=== PATIENT | female | born 1970 ===

== ENCOUNTER 2024-07-19 11:18 | Inpatient (IN) | payer MEDICAID ==
[2024-07-19] MEDS ORDERED: Polyethylene Glycol 3350 Powder 17 GM Packet PO PRN (15:55)
[2024-07-19] MEDS ORDERED: Glucagon,Human Recombinant 1 MG Vial IM PRN (16:11)
[2024-07-19] MEDS ORDERED: 50% Dextrose in Water 50 ML Syringe IVPUSH PRN (16:11)
[2024-07-19] MEDS: Piperacillin/Tazobactam 4.5 GM in Sodium Chloride 0.9% 100 ML IV ONE (16:33)
[2024-07-19 16:55] LABS: HEMATOCRIT 32.2 % (37.0-47.0); HEMOGLOBIN 10.2 g/dL (12.0-16.0); MEAN CORPUSCULAR HEMOGLOBIN 30.2 pg (27.0-34.0); MEAN CORPUSCULAR HGB CONC 31.7 g/dL (33.0-35.0); MEAN CORPUSCULAR VOLUME 95.3 fL (80-100); PLATELET COUNT,PLT 514 10^3/uL (150-450); RED BLOOD CELL COUNT 3.38 10^6/uL (4.2-5.4); WHITE BLOOD CELL COUNT,WBC 9.9 10^3/uL (5.0-10.0)
[2024-07-19] MEDS: Piperacillin/Tazobactam 4.5 GM Vial IV SCH (16:59)
[2024-07-19] MEDS: Insulin Lispro 100 Units/ML 3 ML Vial SUBCUT SCH (16:59)
[2024-07-19 17:02] LABS: BASOPHILS PERCENT AUTO 0.7 % (0.0-1.0); EOSINOPHILS PERCENT AUTO 12.6 % (1.0-3.0); LYMPHOCYTES PERCENT AUTO 15.4 % (20.5-50.1); NEUTROPHILS PERCENT AUTO 64.3 % (42.2-75.2)
[2024-07-19 17:12] LABS: HEMOGLOBIN A1C 6.9 % (<5.7)
[2024-07-19 17:16] LABS: ANION GAP 13.9 mEq/L (7-13); BILIRUBIN TOTAL 0.3 mg/dL (0.2-1.0); BUN/CREATININE RATIO 36.9 (No establ ref range); CALCIUM 9.1 mg/dL (8.5-10.1); CREATININE 1.22 mg/dL (0.55-1.02); EST CRCL DRUG DOSING (CG) 48.77 mL/min; POTASSIUM,K 4.9 mmol/L (3.5-5.1); PROTEIN TOTAL,TP 6.7 g/dL (6.4-8.2)
[2024-07-19 17:19] LABS: EOSINOPHILS PERCENT MAN 11 % (1-3); LYMPHOCYTES PERCENT MAN 10 % (20-50); MONOCYTES PERCENT MAN 10 % (2-8); MYELOCYTE PERCENT MAN 1; PLATELET COUNT ESTIMATE INCREASED; SEG NEUTROPHILS PERCENT MAN 68 % (42-75)
[2024-07-19 17:20] LABS: A/G RATIO 0.43
[2024-07-19 17:21] LABS: INR 0.9 (0.9-1.2); PROTHROMBIN TIME 9.6 SEC (9.0-12.0); PTT,PARTIAL THROMBOPLSTIN TIME 27.2 SEC (22.0-34.0)
[2024-07-19] MEDS: Rosuvastatin 10 MG Tab PO SCH (20:45)
[2024-07-19] MEDS: Insulin Glarg,Human.Rec.Analog 100 Unit/ML 10 ML Vial SUBCUT SCH (20:45)
[2024-07-20] MEDS: Piperacillin/Tazobactam 4.5 GM in Sodium Chloride 0.9% 100 ML IV SCH (00:30)
[2024-07-20] MEDS: Bumetanide 1 MG Tab PO SCH (09:22)
[2024-07-20] MEDS: Aspirin 81 MG Tab.EC PO SCH (09:22)
[2024-07-20] MEDS: Magnesium Oxide 400 MG Tab PO SCH (09:23)
[2024-07-20] MEDS: Multivitamin Tab PO SCH (09:23)
[2024-07-20] MEDS: amLODIPine 5 MG Tab PO SCH (09:26)
[2024-07-20] MEDS: Lisinopril 20 MG Tab PO SCH (09:26)
[2024-07-20] MEDS: Enoxaparin 40 MG/0.4 ML Syringe SUBCUT SCH (09:27)
[2024-07-21] MEDS: Melatonin 3 MG Tab PO PRN (00:29)
[2024-07-21] MEDS: Acetaminophen 325 MG Tab PO PRN (21:38)
[2024-07-22] MEDS ORDERED: Nystatin Topical Powder 60 GM Bottle TOP PRN (09:17)
[2024-07-25 07:30] LABS: BASOPHILS PERCENT AUTO 1.8 % (0.0-1.0); EOSINOPHILS PERCENT AUTO 12.5 % (1.0-3.0); HEMATOCRIT 34.7 % (37.0-47.0); HEMOGLOBIN 11.1 g/dL (12.0-16.0); LYMPHOCYTES PERCENT AUTO 17.8 % (20.5-50.1); MEAN CORPUSCULAR HEMOGLOBIN 30.3 pg (27.0-34.0); MEAN CORPUSCULAR VOLUME 94.8 fL (80-100); MONOCYTES PERCENT AUTO 8.4 % (2-8); NEUTROPHILS PERCENT AUTO 59.5 % (42.2-75.2); PLATELET COUNT,PLT 506 10^3/uL (150-450); RED BLOOD CELL COUNT 3.66 10^6/uL (4.2-5.4)
[2024-07-25 07:49] LABS: ALANINE AMINOTRANSFERASE,ALT 43 U/L (14-59); ALBUMIN 2.4 g/dL (3.4-5.0); ALKALINE PHOSPHATASE 198 U/L (46-116); ASPARTATE AMNIOTRANSFERASE,AST 38 U/L (15-37); BILIRUBIN TOTAL 0.3 mg/dL (0.2-1.0); BLOOD UREA NITROGEN,BUN 73 mg/dL (7-18); BUN/CREATININE RATIO 44.8 (No establ ref range); CARBON DIOXIDE,CO2 28 mmol/L (21-32); CHLORIDE,CL 102 mmol/L (98-107); CREATININE 1.63 mg/dL (0.55-1.02); EST CRCL DRUG DOSING (CG) 36.51 mL/min; GLUCOSE RANDOM 94 mg/dL (70-99); PROTEIN TOTAL,TP 7.2 g/dL (6.4-8.2); SODIUM,NA 136 mmol/L (136-145)
[2024-07-25 07:53] LABS: C-REACTIVE PROTEIN < 0.50 ng/dL (<=0.50); ESTIMATED GFR 37 mL/min (>=60)
[2024-07-25 08:10] LABS: SEDIMENTATION RATE MANUAL 88 mm/hr (0-20)
[2024-07-25] MEDS: Empagliflozin 10 MG Tab PO SCH (09:37)
[2024-07-25] MEDS: Lisinopril 20 MG Tab PO SCH (09:37)
[2024-07-25] MEDS: Bumetanide 1 MG Tab PO SCH (17:40)
[2024-07-25 20:00] LABS: CREATININE,URINE RAND 38.1 mg/dL (No establ ref range); PROTEIN,URINE RANDOM 56.7 mg/dL (0.0-11.9)
[2024-07-25] MEDS: Docusate Sodium 100 MG Cap PO PRN (21:21)
[2024-07-26] MEDS: Ondansetron 4 MG/2 ML SDV IVPUSH PRN (16:54)
[2024-07-26] MEDS: Piperacillin/Tazobactam 4.5 GM in Sodium Chloride 0.9% 100 ML IV SCH (16:55)
[2024-07-26] MEDS: Bumetanide 1 MG Tab PO SCH (17:05)
[2024-07-26] MEDS: Sodium Chloride 0.9% 1,000 ML IV SCH (17:24)
[2024-07-26 21:17] LABS: CALCIUM 9.6 mg/dL (8.5-10.1); CREATININE 1.59 mg/dL (0.55-1.02); EST CRCL DRUG DOSING (CG) 37.42 mL/min
[2024-07-27] MEDS: Bumetanide 1 MG Tab PO SCH (17:56)
[2024-07-29] MEDS: Sodium Chloride 0.9% 10 ML Syringe FLUSH PRN (12:58)
[2024-07-30 06:39] LABS: ANION GAP 12.6 mEq/L (7-13); CALCIUM 9.7 mg/dL (8.5-10.1); CREATININE 1.51 mg/dL (0.55-1.02); EST CRCL DRUG DOSING (CG) 39.41 mL/min; POTASSIUM,K 4.6 mmol/L (3.5-5.1)
[2024-08-01 06:43] LABS: BASOPHILS PERCENT AUTO 2.1 % (0.0-1.0); EOSINOPHILS PERCENT AUTO 16.7 % (1.0-3.0); HEMATOCRIT 35.6 % (37.0-47.0); HEMOGLOBIN 11.8 g/dL (12.0-16.0); LYMPHOCYTES PERCENT AUTO 22.3 % (20.5-50.1); MEAN CORPUSCULAR HEMOGLOBIN 31.1 pg (27.0-34.0); MEAN CORPUSCULAR HGB CONC 33.1 g/dL (33.0-35.0); MEAN CORPUSCULAR VOLUME 93.7 fL (80-100); MONOCYTES PERCENT AUTO 8.9 % (2-8); PLATELET COUNT,PLT 331 10^3/uL (150-450); WHITE BLOOD CELL COUNT,WBC 5.7 10^3/uL (5.0-10.0)
[2024-08-01 07:03] LABS: A/G RATIO 0.56; ALANINE AMINOTRANSFERASE,ALT 78 U/L (14-59); ALBUMIN 2.7 g/dL (3.4-5.0); ALKALINE PHOSPHATASE 231 U/L (46-116); ANION GAP 13.5 mEq/L (7-13); ASPARTATE AMNIOTRANSFERASE,AST 51 U/L (15-37); BILIRUBIN TOTAL 0.4 mg/dL (0.2-1.0); BLOOD UREA NITROGEN,BUN 59 mg/dL (7-18); BUN/CREATININE RATIO 37.6 (No establ ref range); C-REACTIVE PROTEIN < 0.50 ng/dL (<=0.50); CALCIUM 9.7 mg/dL (8.5-10.1); CARBON DIOXIDE,CO2 25 mmol/L (21-32); CHLORIDE,CL 106 mmol/L (98-107); CREATININE 1.57 mg/dL (0.55-1.02); ESTIMATED GFR 39 mL/min (>=60); GLUCOSE RANDOM 78 mg/dL (70-99); POTASSIUM,K 4.5 mmol/L (3.5-5.1); PROTEIN TOTAL,TP 7.5 g/dL (6.4-8.2); SODIUM,NA 140 mmol/L (136-145)
[2024-08-01 07:27] LABS: SEDIMENTATION RATE MANUAL 83 mm/hr (0-20)
[2024-08-01] MEDS: Lisinopril 10 MG Tab PO SCH (09:04)
[2024-08-01] MEDS: Sodium Chloride 0.9% 1,500 ML IV SCH (20:56)
[2024-08-02 10:17] LABS: HEMATOCRIT 33.4 % (37.0-47.0); MEAN CORPUSCULAR HEMOGLOBIN 31.1 pg (27.0-34.0); MEAN CORPUSCULAR HGB CONC 32.9 g/dL (33.0-35.0); MEAN CORPUSCULAR VOLUME 94.4 fL (80-100); RED BLOOD CELL COUNT 3.54 10^6/uL (4.2-5.4); WHITE BLOOD CELL COUNT,WBC 5.6 10^3/uL (5.0-10.0)
[2024-08-02 10:20] LABS: APPEARANCE,URINE CLEAR (CLEAR); BILIRUBIN,URINE NEGATIVE (NEGATIVE); COLOR,URINE YELLOW (YELLOW); GLUCOSE,URINE 250 (NEGATIVE); KETONES,URINE NEGATIVE (NEGATIVE); LEUKOCYTE ESTERASE,URINE NEGATIVE (NEGATIVE); NITRITE,URINE NEGATIVE (NEGATIVE); OCCULT BLOOD,URINE TRACE-INTACT (NEGATIVE); PH,URINE 5.5 (5.0-9.0); PROTEIN,URINE 100 (NEGATIVE); UROBILINOGEN,URINE 0.2 mg/dL (0.2-1.0)
[2024-08-02 10:34] LABS: BACTERIA,URINE OCCASIONAL /HPF (0-FEW/HPF); EPITHELIAL CELLS,URINE FEW /HPF (NOT SEEN); MUCUS,URINE RARE /LPF (NOT SEEN); RBC,URINE 0-5 /HPF (0-5); WBC,URINE NOT SEEN /HPF (0-5/HPF)
[2024-08-02 10:36] LABS: CREATININE,URINE RAND 34.64 mg/dL (No establ ref range); PROTEIN CREATININE RATIO,URINE 1714.8 mg/g (<150.0); PROTEIN,URINE RANDOM 59.4 mg/dL (0.0-11.9)
[2024-08-02 10:37] LABS: ALBUMIN 2.5 g/dL (3.4-5.0); ANION GAP 12.7 mEq/L (7-13); BUN/CREATININE RATIO 42.9 (No establ ref range); CALCIUM 9.5 mg/dL (8.5-10.1); CREATININE 1.19 mg/dL (0.55-1.02); MAGNESIUM 1.9 mg/dL (1.8-2.4); PHOSPHORUS 3.7 mg/dL (2.6-4.7); POTASSIUM,K 4.7 mmol/L (3.5-5.1)
[2024-08-02] MEDS: hydrALAZINE 20 MG/ML SDV IVPUSH PRN (22:47)
[2024-08-04 06:24] LABS: ANION GAP 12.5 mEq/L (7-13); CALCIUM 9.5 mg/dL (8.5-10.1); CREATININE 1.34 mg/dL (0.55-1.02); EST CRCL DRUG DOSING (CG) 44.41 mL/min; POTASSIUM,K 4.5 mmol/L (3.5-5.1)
[2024-08-05 05:46] LABS: INTACT PTH 53 pg/mL (15-65); MYELOPEROXIDASE AB 1 AU/mL (0-19); SERINE PROTEINASE 3, IGG 0 AU/mL (0-19)
[2024-08-05] MEDS: hydrALAZINE 25 MG Tab PO SCH (08:43)
[2024-08-05] MEDS: Lisinopril 5 MG Tab PO SCH (08:45)
[2024-08-08 06:20] LABS: BASOPHILS PERCENT AUTO 2.1 % (0.0-1.0); EOSINOPHILS PERCENT AUTO 17.9 % (1.0-3.0); HEMATOCRIT 35.6 % (37.0-47.0); HEMOGLOBIN 11.6 g/dL (12.0-16.0); LYMPHOCYTES PERCENT AUTO 20.3 % (20.5-50.1); MEAN CORPUSCULAR HEMOGLOBIN 30.9 pg (27.0-34.0); MEAN CORPUSCULAR HGB CONC 32.6 g/dL (33.0-35.0); MEAN CORPUSCULAR VOLUME 94.9 fL (80-100); MONOCYTES PERCENT AUTO 11.1 % (2-8); NEUTROPHILS PERCENT AUTO 48.6 % (42.2-75.2); PLATELET COUNT,PLT 292 10^3/uL (150-450); RED BLOOD CELL COUNT 3.75 10^6/uL (4.2-5.4); WHITE BLOOD CELL COUNT,WBC 6.1 10^3/uL (5.0-10.0)
[2024-08-08 06:40] LABS: ALANINE AMINOTRANSFERASE,ALT 80 U/L (14-59); ALBUMIN 2.6 g/dL (3.4-5.0); ALKALINE PHOSPHATASE 244 U/L (46-116); ANION GAP 13.4 mEq/L (7-13); ASPARTATE AMNIOTRANSFERASE,AST 46 U/L (15-37); BILIRUBIN TOTAL 0.3 mg/dL (0.2-1.0); BLOOD UREA NITROGEN,BUN 45 mg/dL (7-18); BUN/CREATININE RATIO 38.8 (No establ ref range); CALCIUM 9.9 mg/dL (8.5-10.1); CARBON DIOXIDE,CO2 24 mmol/L (21-32); CHLORIDE,CL 105 mmol/L (98-107); CREATININE 1.16 mg/dL (0.55-1.02); GLUCOSE RANDOM 101 mg/dL (70-99); POTASSIUM,K 4.4 mmol/L (3.5-5.1); SODIUM,NA 138 mmol/L (136-145)
[2024-08-08 06:42] LABS: A/G RATIO 0.59; C-REACTIVE PROTEIN < 0.50 ng/dL (<=0.50); ESTIMATED GFR 56 mL/min (>=60)
[2024-08-08 07:37] LABS: SEDIMENTATION RATE MANUAL 85 mm/hr (0-20)
== END 2024-08-15 19:30 | disposition home health service (06) | DRG 638 ==
LOC: DL.MS 15:18
PROVIDERS: ADMIT Internal Medicine; ATTEND Internal Medicine
DX: E11.69 Type 2 diabetes mellitus with other specified complication (principal); L97.819 Non-pressure chronic ulcer of other part of right lower leg with unspecified severity; M86.8X7 Other osteomyelitis, ankle and foot; L97.829 Non-pressure chronic ulcer of other part of left lower leg with unspecified severity; E11.622 Type 2 diabetes mellitus with other skin ulcer; N17.0 Acute kidney failure with tubular necrosis; E11.51 Type 2 diabetes mellitus with diabetic peripheral angiopathy without gangrene; I11.0 Hypertensive heart disease with heart failure; Z68.32 Body mass index [BMI] 32.0-32.9, adult; I50.9 Heart failure, unspecified; I73.9 Peripheral vascular disease, unspecified; E66.9 Obesity, unspecified; I95.9 Hypotension, unspecified; Z79.4 Long term (current) use of insulin; Z79.82 Long term (current) use of aspirin; Z79.899 Other long term (current) drug therapy
CPT/HCPCS: 36415; 80048; 80053; 80069; 81001; 82570; 82947; 83036; 83516; 83735; 83970; 84156; 85025; 85027; 85610; 85651; 85730; 86036; 86140; 97110-GO; 97110-GP; 97161-GP; 97165-GO; 97530-GO; 97530-GP; 99305; 99309; 99316; A9270-GY; J0360; J1650; J1815-GY; J2405; J2543; J3490; J7030

== ENCOUNTER 2024-11-29 15:02 | Inpatient (IN) | payer MEDICAID ==
[2024-11-29] MEDS ORDERED: Albuterol/Ipratropium 3.0-0.5 MG/3 ML Neb Soln NEB PRN (17:21)
[2024-11-29] MEDS ORDERED: Melatonin 3 MG Tab PO PRN (17:21)
[2024-11-29] MEDS ORDERED: Docusate Sodium 100 MG Cap PO PRN (17:21)
[2024-11-29] MEDS ORDERED: Polyethylene Glycol 3350 Powder 17 GM Packet PO PRN (17:21)
[2024-11-29] MEDS ORDERED: Sennosides/Docusate Sodium 50-8.6 MG Tab PO PRN (17:21)
[2024-11-29] MEDS ORDERED: Ondansetron 4 MG Tab.DIS PO PRN (17:21)
[2024-11-29] MEDS ORDERED: Acetaminophen/HYDROcodone 325-5 MG Tab PO PRN (17:21)
[2024-11-29] MEDS ORDERED: Piperacillin/Tazobactam 4.5 GM Vial IV SCH (17:30)
[2024-11-29] MEDS ORDERED: Glucagon,Human Recombinant 1 MG Vial IM PRN (17:47)
[2024-11-29] MEDS ORDERED: 50% Dextrose in Water 50 ML Syringe IVPUSH PRN (17:47)
[2024-11-29 17:51] LABS: HEMATOCRIT 33.4 % (37.0-47.0); HEMOGLOBIN 11.1 g/dL (12.0-16.0); MEAN CORPUSCULAR HEMOGLOBIN 30.7 pg (27.0-34.0); MEAN CORPUSCULAR HGB CONC 33.2 g/dL (33.0-35.0); MEAN CORPUSCULAR VOLUME 92.3 fL (80-100); PLATELET COUNT,PLT 359 10^3/uL (150-450); RED BLOOD CELL COUNT 3.62 10^6/uL (4.2-5.4)
[2024-11-29 17:55] LABS: BASOPHILS PERCENT AUTO 0.9 % (0.0-1.0); LYMPHOCYTES PERCENT AUTO 18.2 % (20.5-50.1); MONOCYTES PERCENT AUTO 7.1 % (2-8); NEUTROPHILS PERCENT AUTO 57.8 % (42.2-75.2)
[2024-11-29 18:08] LABS: EOSINOPHILS PERCENT MAN 16 % (1-3); HEMOGLOBIN A1C 5.8 % (<5.7); INR 0.9 (0.9-1.2); LYMPHOCYTES PERCENT MAN 18 % (20-50); MONOCYTES PERCENT MAN 7 % (2-8); PROTHROMBIN TIME 9.4 SEC (9.0-12.0); PTT,PARTIAL THROMBOPLSTIN TIME 25.2 SEC (22.0-34.0); SEG NEUTROPHILS PERCENT MAN 59 % (42-75)
[2024-11-29 18:09] LABS: ANION GAP 15.5 mEq/L (7-13); BILIRUBIN TOTAL 0.3 mg/dL (0.2-1.0); BUN/CREATININE RATIO 39.4 (No establ ref range); CALCIUM 9.3 mg/dL (8.5-10.1); CREATININE 1.04 mg/dL (0.55-1.02); EST CRCL DRUG DOSING (CG) 59.44 mL/min; MAGNESIUM 2.1 mg/dL (1.8-2.4); POTASSIUM,K 4.5 mmol/L (3.5-5.1); PROTEIN TOTAL,TP 7.4 g/dL (6.4-8.2)
[2024-11-29 18:11] LABS: A/G RATIO 0.68
[2024-11-29] MEDS: Piperacillin/Tazobactam 4.5 GM in Sodium Chloride 0.9% 100 ML IV ONE (18:35)
[2024-11-29] MEDS: Rosuvastatin 10 MG Tab PO SCH (21:09)
[2024-11-29] MEDS: Piperacillin/Tazobactam 4.5 GM in Sodium Chloride 0.9% 100 ML IV SCH (21:09)
[2024-11-30] MEDS ORDERED: PATIROMER CALCIUM SORBITEX PO SCH (09:00)
[2024-11-30] MEDS: Lisinopril 5 MG Tab PO SCH (09:47)
[2024-11-30] MEDS: Aspirin 81 MG Tab.EC PO SCH (09:47)
[2024-11-30] MEDS: Magnesium Oxide 400 MG Tab PO SCH (09:48)
[2024-11-30] MEDS: amLODIPine 5 MG Tab PO SCH (09:48)
[2024-11-30] MEDS: Enoxaparin 40 MG/0.4 ML Syringe SUBCUT SCH (09:48)
[2024-11-30] MEDS: Insulin Lispro 100 Units/ML 3 ML Vial SUBCUT SCH (09:49)
[2024-12-02] MEDS: Acetaminophen 325 MG Tab PO PRN (06:14)
[2024-12-02] MEDS: Sodium Chloride 0.9% 10 ML Syringe FLUSH PRN (06:16)
[2024-12-02 07:01] LABS: HEMOGLOBIN 10.4 g/dL (12.0-16.0); MEAN CORPUSCULAR HEMOGLOBIN 30.3 pg (27.0-34.0); MEAN CORPUSCULAR HGB CONC 32.5 g/dL (33.0-35.0); MEAN CORPUSCULAR VOLUME 93.3 fL (80-100); PLATELET COUNT,PLT 309 10^3/uL (150-450); RED BLOOD CELL COUNT 3.43 10^6/uL (4.2-5.4); WHITE BLOOD CELL COUNT,WBC 7.4 10^3/uL (5.0-10.0)
[2024-12-02 07:21] LABS: A/G RATIO 0.69; ALANINE AMINOTRANSFERASE,ALT 45 U/L (14-59); ALBUMIN 2.7 g/dL (3.4-5.0); ALKALINE PHOSPHATASE 155 U/L (46-116); ANION GAP 13.3 mEq/L (7-13); ASPARTATE AMNIOTRANSFERASE,AST 25 U/L (15-37); BILIRUBIN TOTAL 0.3 mg/dL (0.2-1.0); BLOOD UREA NITROGEN,BUN 39 mg/dL (7-18); BUN/CREATININE RATIO 27.3 (No establ ref range); C-REACTIVE PROTEIN < 0.50 ng/dL (<=0.50); CALCIUM 9.4 mg/dL (8.5-10.1); CARBON DIOXIDE,CO2 26 mmol/L (21-32); CHLORIDE,CL 107 mmol/L (98-107); CREATININE 1.43 mg/dL (0.55-1.02); EST CRCL DRUG DOSING (CG) 43.23 mL/min; ESTIMATED GFR 43 mL/min (>=60); GLUCOSE RANDOM 93 mg/dL (70-99); POTASSIUM,K 4.3 mmol/L (3.5-5.1); PROTEIN TOTAL,TP 6.6 g/dL (6.4-8.2); SODIUM,NA 142 mmol/L (136-145)
[2024-12-02 07:49] LABS: SEDIMENTATION RATE MANUAL 69 mm/hr (0-20)
[2024-12-02] MEDS: amLODIPine 5 MG Tab PO SCH (10:08)
[2024-12-02] MEDS: Lisinopril 5 MG Tab PO SCH (10:09)
[2024-12-02 17:05] LABS: BASOPHILS PERCENT AUTO 1.8 % (0.0-1.0); EOSINOPHILS PERCENT AUTO 22.5 % (1.0-3.0); LYMPHOCYTES PERCENT AUTO 22.8 % (20.5-50.1); MONOCYTES PERCENT AUTO 8.8 % (2-8); NEUTROPHILS PERCENT AUTO 44.1 % (42.2-75.2)
[2024-12-02 17:06] LABS: EOSINOPHILS PERCENT MAN 25 % (1-3); LYMPHOCYTES PERCENT MAN 27 % (20-50); MONOCYTES PERCENT MAN 3 % (2-8); SEG NEUTROPHILS PERCENT MAN 45 % (42-75)
[2024-12-02] MEDS: DAPTOmycin 500 MG Vial IV SCH (21:45)
[2024-12-03 08:11] LABS: BASOPHILS PERCENT AUTO 1.1 % (0.0-1.0); EOSINOPHILS PERCENT AUTO 20.8 % (1.0-3.0); HEMATOCRIT 31.3 % (37.0-47.0); HEMOGLOBIN 10.2 g/dL (12.0-16.0); MEAN CORPUSCULAR HEMOGLOBIN 30.6 pg (27.0-34.0); MEAN CORPUSCULAR HGB CONC 32.6 g/dL (33.0-35.0); MONOCYTES PERCENT AUTO 6.7 % (2-8); NEUTROPHILS PERCENT AUTO 49.4 % (42.2-75.2); PLATELET COUNT,PLT 308 10^3/uL (150-450); RED BLOOD CELL COUNT 3.33 10^6/uL (4.2-5.4); WHITE BLOOD CELL COUNT,WBC 7.6 10^3/uL (5.0-10.0)
[2024-12-03 08:30] LABS: A/G RATIO 0.72; ALBUMIN 2.8 g/dL (3.4-5.0); ANION GAP 14.1 mEq/L (7-13); BILIRUBIN TOTAL 0.3 mg/dL (0.2-1.0); BUN/CREATININE RATIO 30.4 (No establ ref range); CALCIUM 9.1 mg/dL (8.5-10.1); CREATININE 1.35 mg/dL (0.55-1.02); EST CRCL DRUG DOSING (CG) 45.79 mL/min; MAGNESIUM 2.1 mg/dL (1.8-2.4); POTASSIUM,K 4.1 mmol/L (3.5-5.1); PROTEIN TOTAL,TP 6.7 g/dL (6.4-8.2)
[2024-12-03] MEDS: Linezolid 600 MG/300 ML 600 MG in Premix Bag 1 BAG IV SCH (19:38)
[2024-12-03 20:27] LABS: ANION GAP 15.1 mEq/L (7-13); CALCIUM 9.1 mg/dL (8.5-10.1); CREATININE 1.44 mg/dL (0.55-1.02); EST CRCL DRUG DOSING (CG) 42.93 mL/min; POTASSIUM,K 4.1 mmol/L (3.5-5.1)
[2024-12-03] MEDS: amLODIPine 5 MG Tab PO SCH (20:28)
[2024-12-04 07:03] LABS: HEMATOCRIT 31.8 % (37.0-47.0); HEMOGLOBIN 10.3 g/dL (12.0-16.0); MEAN CORPUSCULAR HEMOGLOBIN 30.3 pg (27.0-34.0); MEAN CORPUSCULAR HGB CONC 32.4 g/dL (33.0-35.0); MEAN CORPUSCULAR VOLUME 93.5 fL (80-100); PLATELET COUNT,PLT 306 10^3/uL (150-450); WHITE BLOOD CELL COUNT,WBC 6.8 10^3/uL (5.0-10.0)
[2024-12-04 07:12] LABS: BASOPHILS PERCENT AUTO 1.6 % (0.0-1.0); EOSINOPHILS PERCENT AUTO 20.3 % (1.0-3.0); LYMPHOCYTES PERCENT AUTO 29.3 % (20.5-50.1); MONOCYTES PERCENT AUTO 7.5 % (2-8); NEUTROPHILS PERCENT AUTO 41.3 % (42.2-75.2)
[2024-12-04 08:24] LABS: EOSINOPHILS PERCENT MAN 23 % (1-3); LYMPHOCYTES PERCENT MAN 29 % (20-50); MONOCYTES PERCENT MAN 5 % (2-8); SEG NEUTROPHILS PERCENT MAN 43 % (42-75)
[2024-12-04 09:19] LABS: CALCIUM 9.3 mg/dL (8.5-10.1); CREATININE 1.09 mg/dL (0.55-1.02); EST CRCL DRUG DOSING (CG) 56.71 mL/min; POTASSIUM,K 4.3 mmol/L (3.5-5.1)
[2024-12-04 09:43] LABS: ANION GAP 18.3 mEq/L (7-13)
[2024-12-05 06:42] LABS: HEMATOCRIT 30.9 % (37.0-47.0); HEMOGLOBIN 9.9 g/dL (12.0-16.0); MEAN CORPUSCULAR HEMOGLOBIN 30.1 pg (27.0-34.0); MEAN CORPUSCULAR VOLUME 93.9 fL (80-100); PLATELET COUNT,PLT 322 10^3/uL (150-450); RED BLOOD CELL COUNT 3.29 10^6/uL (4.2-5.4); WHITE BLOOD CELL COUNT,WBC 6.3 10^3/uL (5.0-10.0)
[2024-12-05 06:47] LABS: BASOPHILS PERCENT AUTO 1.9 % (0.0-1.0); EOSINOPHILS PERCENT AUTO 17.4 % (1.0-3.0); LYMPHOCYTES PERCENT AUTO 31.2 % (20.5-50.1); MONOCYTES PERCENT AUTO 9.2 % (2-8); NEUTROPHILS PERCENT AUTO 40.3 % (42.2-75.2)
[2024-12-05 07:03] LABS: ALBUMIN 2.6 g/dL (3.4-5.0); ANION GAP 14.2 mEq/L (7-13); BILIRUBIN TOTAL 0.2 mg/dL (0.2-1.0); BUN/CREATININE RATIO 34.8 (No establ ref range); CALCIUM 9.2 mg/dL (8.5-10.1); CREATININE 1.15 mg/dL (0.55-1.02); EST CRCL DRUG DOSING (CG) 53.75 mL/min; POTASSIUM,K 4.2 mmol/L (3.5-5.1); PROTEIN TOTAL,TP 6.3 g/dL (6.4-8.2)
[2024-12-05 07:07] LABS: EOSINOPHILS PERCENT MAN 19 % (1-3); LYMPHOCYTES PERCENT MAN 23 % (20-50); MONOCYTES PERCENT MAN 6 % (2-8); SEG NEUTROPHILS PERCENT MAN 52 % (42-75)
[2024-12-05 07:09] LABS: A/G RATIO 0.7
[2024-12-05] MEDS: hydrALAZINE 25 MG Tab PO SCH (12:52)
[2024-12-07 06:41] LABS: ALANINE AMINOTRANSFERASE,ALT 34 U/L (14-59); ALBUMIN 2.8 g/dL (3.4-5.0); ALKALINE PHOSPHATASE 125 U/L (46-116); ASPARTATE AMNIOTRANSFERASE,AST 18 U/L (15-37); BILIRUBIN TOTAL 0.3 mg/dL (0.2-1.0); BLOOD UREA NITROGEN,BUN 40 mg/dL (7-18); BUN/CREATININE RATIO 34.2 (No establ ref range); CALCIUM 9.3 mg/dL (8.5-10.1); CARBON DIOXIDE,CO2 26 mmol/L (21-32); CREATINE KINASE,CK 39 U/L (16-191); CREATININE 1.17 mg/dL (0.55-1.02); EST CRCL DRUG DOSING (CG) 52.83 mL/min; GLUCOSE RANDOM 97 mg/dL (70-99); PROTEIN TOTAL,TP 6.6 g/dL (6.4-8.2)
[2024-12-07 06:44] LABS: ANION GAP 12.8 mEq/L (7-13); CHLORIDE,CL 108 mmol/L (98-107); POTASSIUM,K 4.8 mmol/L (3.5-5.1); SODIUM,NA 142 mmol/L (136-145)
[2024-12-07 06:45] LABS: A/G RATIO 0.74; C-REACTIVE PROTEIN < 0.50 ng/dL (<=0.50); ESTIMATED GFR 55 mL/min (>=60)
[2024-12-08] MEDS ORDERED: PATIROMER CALCIUM SORBITEX PO SCH (09:00)
== END 2024-12-07 19:35 | disposition home health service (06) | DRG 949 ==
LOC: DL.MS 16:24
PROVIDERS: ADMIT Internal Medicine; ATTEND Internal Medicine
DX: Z48.817 Encounter for surgical aftercare following surgery on the skin and subcutaneous tissue (principal); N12 Tubulo-interstitial nephritis, not specified as acute or chronic; N17.9 Acute kidney failure, unspecified; E11.51 Type 2 diabetes mellitus with diabetic peripheral angiopathy without gangrene; B95.61 Methicillin susceptible Staphylococcus aureus infection as the cause of diseases classified elsewhere; F15.90 Other stimulant use, unspecified, uncomplicated; D64.9 Anemia, unspecified; D72.10 Eosinophilia, unspecified; E88.09 Other disorders of plasma-protein metabolism, not elsewhere classified; N18.2 Chronic kidney disease, stage 2 (mild); E11.22 Type 2 diabetes mellitus with diabetic chronic kidney disease; I12.9 Hypertensive chronic kidney disease with stage 1 through stage 4 chronic kidney disease, or unspecified chronic kidney disease; E66.811 Obesity, class 1; Z68.30 Body mass index [BMI] 30.0-30.9, adult; Z79.1 Long term (current) use of non-steroidal anti-inflammatories (NSAID); Z79.82 Long term (current) use of aspirin; Z79.4 Long term (current) use of insulin; Z79.899 Other long term (current) drug therapy; Z79.2 Long term (current) use of antibiotics
CPT/HCPCS: 36415; 80048; 80053; 82550; 82947; 83036; 83735; 85025; 85610; 85651; 85730; 86140; 97161-GP; 97165-GO; 99305; 99308; 99309; 99316; A9270-GY; J0878; J1650; J1815-GY; J2020; J2543